=== PATIENT | female | born 1950 ===

== ENCOUNTER → 2017-12-20 | Outpatient (CLI) | payer OTHER, BC ==
[~2017-12-20] MED LIST: CITA40TA4 PO; FEXO1TAB49 PO; LISI-729 PO
[2017-12-20 18:10] LABS: BASO ABS # 0.05 K/uL (0-0.2); EOS % 4.8 %; EOS ABS # 0.25 K/uL (0-0.5); HEMOGLOBIN 13.6 g/dL (12.0-16.0); IG# 0.01 K/uL (0.00-0.02); LYMPH % 41.8 %; LYMPH ABS # 2.17 K/uL (1.2-3.4); MEAN CELL VOLUME 88.7 fL (80-100); MEAN CORPUSCULAR HEMOGLOBIN 30.2 pg (25-34); MEAN PLATELET VOLUME 10.1 fL (7.4-10.4); MONO % 7.3 %; MONO ABS # 0.38 K/uL (0.11-0.59); NEUT % 44.9 %; NEUT ABS # 2.33 K/uL (1.4-6.5); PLATELET COUNT 207 K/uL (130-400); RED CELL DISTRIBUTION WIDTH CV 13.1 % (11.5-14.5); RED CELL DISTRIBUTION WIDTH SD 42.4 fL (36.4-46.3); WHITE BLOOD COUNT 5.19 K/uL (4.8-10.8)
== END | disposition home or self-care (01) ==
LOC: C.LABMFLN 15:10
PROVIDERS: ATTEND Family Medicine
DX: M79.1 Myalgia (principal); M25.50 Pain in unspecified joint